=== PATIENT | male | born 1970 ===

== ENCOUNTER 2025-01-20 07:00 | Day surgery (SDC) | payer OTHER ==
[2025-01-13 13:29] VITALS: BP 135/87
[~2025-01-20 07:00] MED LIST: CARVEDILOL3.125 M1 PO; LOSARTAN-HCTZ1 EAC2 PO; NIFEDIPINE ER60 M1 PO; SYNTHROID175 MCG PO
[2025-01-20] MEDS ORDERED: CEFTRIAXONE SODIUM 2,000 MG VIAL ONE (07:57)
[2025-01-20] MEDS ORDERED: METRONIDAZOLE/SODIUM CHLORIDE 500 MG/100 ML PIGGYBACK IV ONE (07:57)
[2025-01-20] MEDS ORDERED: LIDOCAINE HCL 1%/EPINEPHRINE 20ML VIAL IJ ONE (08:33)
[2025-01-20] MEDS ORDERED: HEMOSTATIC MATRIX 1 KIT KIT TOP ONE (08:33)
[2025-01-20] MEDS ORDERED: DIBUCAINE 30 GM TUBE ONE (08:33)
[2025-01-20] MEDS ORDERED: BUPIVACAINE HCL/MPF 0.5% 30ML VIAL ONE (08:33)
[2025-01-20] MEDS ORDERED: COLACE100 MG PO (10:25)
[2025-01-20] MEDS ORDERED: TRAM1TAB98 PO (10:25)
== END 2025-01-20 13:20 | disposition home or self-care (01) ==
LOC: CIR.AMB 07:00
PROVIDERS: ATTEND Surgery
DX: K60.321 Anal fistula, complex, initial (principal); K60.1 Chronic anal fissure; K62.89 Other specified diseases of anus and rectum